=== PATIENT | female | born 1995 | race Caucasian/White ===

== ENCOUNTER 2017-04-15 22:21 | Emergency (ER) | payer OTHER ==
[~2017-04-15] VITALS: Ht 167.6 cm; Wt 81.2 kg
[2017-04-15 22:35] VITALS: Ht 167.6 cm; Wt 81.2 kg
[2017-04-15 23:46] VITALS: BP 110/77
== END 2017-04-15 23:05 | disposition home or self-care (01) ==
LOC: ED 22:21
DX: S83.91XA Sprain of unspecified site of right knee, initial encounter (principal); J45.909 Unspecified asthma, uncomplicated; Z88.8 Allergy status to other drugs, medicaments and biological substances; Y93.51 Activity, roller skating (inline) and skateboarding; Y92.89 Other specified places as the place of occurrence of the external cause; Y99.8 Other external cause status